=== PATIENT | female | born 1965 | race Caucasian/White ===

== ENCOUNTER → 2019-11-26 13:02 | Outpatient (CLI) | payer OTHER, SELFPAY ==
--- NOTE | ~2019-11-26 | MM_ITS ---
EXAMINATION: MM screening maureen BI w frankie HISTORY: Screening mammogram TECHNIQUE: Craniocaudal and mediolateral oblique 3-D tomosynthesis images were obtained and synthetic 2-D images were generated. CAD analysis was submitted and interpreted. COMPARISON: 11/01/2018, 08/21/2017, 06/24/2016 bilateral digital screening mammogram examinations BREAST PARENCHYMAL COMPOSITION: The breasts are almost entirely fatty. FINDINGS: There is no evidence of suspicious mass, calcification, or architectural distortion to sugg est malignancy in either breast. There has been no suspicious interval change. IMPRESSION: 1. No mammographic evidence of malignancy. 2. Recommend routine screening mammography in one year. BI-RADS Category 1: Negative Reviewed, dictated and finalized at location A. HAIRER
== END ==
PROVIDERS: Visit Provider Obstetrics & Gynecology
DX: Z12.31 Encounter for screening mammogram for malignant neoplasm of breast (principal)
CPT/HCPCS: 77063; 77067

== ENCOUNTER 2019-12-09 07:45 | Outpatient (RCR) | payer OTHER, SELFPAY ==
--- NOTE | 2019-11-25 10:49 | PTOPEVAL ---
Thank you for referring this patient to [facility]. Please review, sign, date and return this plan of care CARLOS. Pt seen for initial evaluation due to chronic back pain. She demonstrates posture impairments, muscle weakness and poor movement pattern that requires additional skilled therapy to address impairments and improved performance with daily activities. Cont PT 2x/wk x 5 wk. I agree with and certify that the following plan of care is medically necessary. Referring Physician Date Attending Provider: Yousuf Brand MD Referring Provider: *PT Outpatient Evaluation Start: 11/25/19 09:32 Freq: Status: Active Protocol: Document 11/25/19 09:33 LAURA (Rec: 11/25/19 10:49 LAURA [id number]) Therapy Assessment Status Assessment Status Assessment Status Evaluation Outpatient Past Medical History Past Medical History Past Medical History Status Patient Denies Significant Past Medical History Evaluation Information Problem Diagnosis low back pain Onset 3 years Cause unknown. 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 She Family reports increased pain with prolonged sitting. She report constant left acheness pain of left low back/buttock region. She will then have burning radiating pain into the left leg. She atttempts to change position to improve pain. She has tried a lumbar support without relief. She will have increased pain with sleeping depending on the position. She reports improve pain with standing and walking. She does yoga 1x/wk and walks 2-3x/wk for 2 miles. No pain changes with the fitness routine. Her left hip feels tighter with some of the moves . Diagnostic Tests X-Rays For This Problem Yes: hip normal Pain Assessment Timing of Pain Assessment Timing of Pain Assessment Assessment Pain Scale Pain Scale Used Numeric (1 - 10) Self Report Pain Assessment Left Posterior Buttock(s) Reported Pain Level 2 Pain Description Aching,Burning,Radiating, Tightness Pain Frequency Chronic,Continuous Current Pain Intensity 2 Greatest Pain Intensity
--- NOTE | 2019-12-11 11:54 | PCPTNOTE ---
Patient called & cancelled scheduled appointment this date due to Coronavirus. She is unsure if she will make her next appt.
--- NOTE | 2019-12-16 10:01 | PCPTNOTE ---
Patient called & cancelled scheduled appointment this date due to to the COVID-19 status. Cancelled re-eval also.
--- NOTE | 2019-12-30 09:18 | PCPTNOTE ---
Admitting Provider: Attending Provider: Yousuf Brand MD Patient:Liliana Cardona Date of :1965 Patient has not returned for any further treatments since 12/09/2019, therefore she will be discharged at this time. Patient?s initial visit was on 11/25/2019 09:30 and she had a total of 5 visits. The goals have not been met. Thank you for referring this patient to [facility]. Please review, sign, date and return this discharge summary CARLOS. I have been updated about the patient's current status and I agree with discharge from the above service at this time. Referring Physician Date
== END 2019-12-30 14:26 | disposition home or self-care (01) ==
LOC: ANHPT 07:45
PROVIDERS: Visit Provider Orthopaedic Surgery
DX: M47.816 Spondylosis without myelopathy or radiculopathy, lumbar region (principal)
CPT/HCPCS: 97110; 97140; 97161

== ENCOUNTER → 2021-02-26 11:28 | Outpatient (CLI) | payer OTHER, SELFPAY ==
--- NOTE | ~2021-02-26 | MM_ITS ---
EXAMINATION: MM screening maureen BI w frankie HISTORY: Screening TECHNIQUE: Craniocaudal and mediolateral oblique 3-D tomosynthesis images were obtained and synthetic 2-D images were generated. CAD analysis was submitted and interpreted. COMPARISON: Comparison to multiple prior studies sequentially, with oldest reviewed study dated 05/15. BREAST PARENCHYMAL COMPOSITION: There are scattered areas of fibroglandular density. FINDINGS: There is no evidence of suspicious mass, calcification, or architectural distortion to sugg est malignancy in either breast. There has been no suspicious interval change. IMPRESSION: 1. No mammographic evidence of malignancy. 2. Recommend routine screening mammography in one year. BI-RADS Category 1: Negative Reviewed, dictated and finalized at location A.
== END ==
PROVIDERS: PCP Physician Assistant; Visit Provider Physician Assistant
DX: Z12.31 Encounter for screening mammogram for malignant neoplasm of breast (principal)
CPT/HCPCS: 77063; 77067

== ENCOUNTER → 2022-05-26 11:41 | Outpatient (CLI) | payer OTHER, SELFPAY ==
--- NOTE | ~2022-05-26 | MM_ITS ---
EXAMINATION: MM screening maureen BI w frankie HISTORY: Screening mammogram, family history of breast cancer in her mother. TECHNIQUE: Craniocaudal and mediolateral oblique 3-D tomosynthesis images were obtained and synthetic 2-D images were generated. CAD analysis was submitted and interpreted. COMPARISON: 02/26/2021, 11/26/2019, 11/01/2018 BREAST PARENCHYMAL COMPOSITION: There are scattered areas of fibroglandular density. FINDINGS: There is no suspicious mass, calcification, or architectural distortion to suggest malignan cy in either breast. There has been no suspicious interval change. IMPRESSION: 1. No mammographic evidence of malignancy. 2. Recommend routine screening mammography in one year. BI-RADS Category 1: Negative Reviewed, dictated and finalized at location A.
== END ==
PROVIDERS: PCP Physician Assistant; Visit Provider Physician Assistant
DX: Z12.31 Encounter for screening mammogram for malignant neoplasm of breast (principal)
CPT/HCPCS: 77063; 77067

== ENCOUNTER → 2023-06-15 13:35 | Outpatient (CLI) | payer OTHER, SELFPAY ==
--- NOTE | ~2023-06-15 | MM_ITS ---
EXAMINATION: MM screening [facility] BI w frankie HISTORY: Screening TECHNIQUE: Craniocaudal and mediolateral oblique 3-D tomosynthesis images were obtained and synthetic 2-D images were generated. CAD analysis was submitted and interpreted. COMPARISON: Comparison to multiple prior studies sequentially, with oldest reviewed study dated 07/27. BREAST PARENCHYMAL COMPOSITION: There are scattered areas of fibroglandular density. FINDINGS: There is no evidence of suspicious mass, calcification, or architectural distortion to sugg est malignancy in either breast. There has been no suspicious interval change. IMPRESSION: 1. No mammographic evidence of malignancy. 2. Recommend routine screening mammography in one year. BI-RADS Category 1: Negative Reviewed, dictated and finalized at location A.
== END ==
PROVIDERS: PCP Physician Assistant; Visit Provider Physician Assistant
DX: Z12.31 Encounter for screening mammogram for malignant neoplasm of breast (principal)
CPT/HCPCS: 77063; 77067

== ENCOUNTER 2025-02-13 08:02 | Emergency (ER) | payer OTHER, SELFPAY ==
--- NOTE | 2025-02-13 08:05 | ED.SKABFB ---
HPI - Skin/Abscess/Foreign Bdy General Chief complaint: Skin/Abscess/Foreign Body Stated complaint: Rash Time Seen by Provider: 02/13/25 08:03 Source: patient Mode of arrival: ambulatory Limitations: no limitations History of Present Illness HPI narrative: Jing is a 59-year-old female patient presenting to the clinic today with complaints of a rash to her face and bilateral arms. She reports she reports she was out [place] and developed a rash 2 days ago. Thought the rash may have been caused by using 2 different types of sunscreen. Also reports caring around a barn cat and is unsure if the rash came from the cat. States the rash is itchy. Related Data Home Medications ?Medication ?Instructions ?Recorded ?Confirmed ?Last Taken ?Type aspirin 81 mg tablet,delayed 81 mg PO DAILY 11/06/19 10/18/23 Unknown History release (Adult Low Dose Aspirin) multivitamin 1 tablet PO DAILY 04/14/21 10/18/23 Unknown History Allergies Allergy/AdvReac Type Severity Reaction Status Date / Time prednisone Allergy Headache Verified 02/13/25 08:14 ibuprofen AdvReac stomach Verified 02/13/25 08:14 upset Review of Systems Review of Systems: Pertinent positives per HPI. Patient denies any fever, chills, headache, visual changes, dizziness, cough, runny nose, sore throat, shortness of breath, chest pain, palpitations, nausea, vomiting, diarrhea, constipation, abdominal pain, or any urinary issues. [facility], LAT[facility] Past Medical History Medical History De Quervain's syndrome (tenosynovitis) left first dorsal compartment Arthritis, lumbar spine Skin cancer Surgical History Surgical History History of breast biopsy 2010 History of elbow surgery Approx. - Dr. Brand left Lateral epicondylar debridement Family History Family History Mother Breast cancer Social History Social History Smoking status: Never smoker Alcohol intake: current Alcohol use details: Occasional Do You Feel Safe in your Home?: Yes Lack of Transportation: No Lack of Food: Never True Current Housing: I Have Housing Concerned About Future Housing: No Difficulty Paying Gas/Electric Bills: No Difficulty Paying for Meds: No Currently Unemployed: No Education: Bachelor's Degree Difficulty w/ Childcare or Family Care: No Living arrangements: with family Additional living arrangements comments: -[place] Occupation/Education: retired Gender identity (if verbalized by the patient): Female Comments At the time of my signature, I reviewed and agree with the nursing past medical, surgical, social, and family history. There is no relevant family history pertinent to the patient complaint. Exam Narrative: General: Well-developed, well nourished, in no apparent distress Head: Normocephalic, atraumatic. Cardio: Regular rate and rhythm, s1 and s2 normal, no murmur appreciated. Resp: Clear to auscultation bilaterally, no rhonchi, rales, wheezing or rubs. Integumentary: [place], warm, and dry, intact without lesion, red, raised, blistered itchy rash to face and bilateral arms Course Course Emergency Course: Portions of this record may have been created with voice recognition software. Level of Care: Express Care Visit Vital Signs Vital signs: Vital Signs Temperature 36.2 C L 02/13/25 08:12 Pulse Rate 55 L 02/13/25 08:12 Respiratory Rate 18 02/13/25 08:12 Blood Pressure 119/65 02/13/25 08:12 Pulse Oximetry 97 02/13/25 08:12 Oxygen Delivery Room Air 02/13/25 08:12 Temperature 36.2 C L 02/13/25 08:12 Pulse Rate 55 L 02/13/25 08:12 Respiratory Rate 18 02/13/25 08:12 Blood Pressure 119/65 02/13/25 08:12 Pulse Oximetry 97 02/13/25 08:12 Oxygen Delivery Room Air 02/13/25 08:12 Vital signs reviewed MDM - Skin/Abscess/Foreign Bdy MDM Narrative Medical decision making narrative: At the time of visit patient is resting comfortably on the exam table. Patient appears to be nontoxic. Medications: Dexamethasone 10 mg IM given in the clinic today. Plan: I suspect patient has poison kady dermatitis. Prescription for prednisone and triamcinolone cream was sent to the pharmacy. Patient states that she has not had prednisone in about 12 years and they gave her a headache which she has taken it before but is willing to try it again. Supportive measures were discussed with the patient and they voiced understanding discharge instructions and agrees to treatment plan. Return precautions reviewed Differential Diagnosis Differential diagnosis: Likely abscess of skin or subcutaneous tissue, viral exanthem, dermatophytosis, urticaria, herpes zoster, allergic reaction to drug, cellulitis, eczema, insect bites, impetigo and contact dermatitis Discharge Plan Discharge Clinical Impression: Contact dermatitis due to poison kady Patient Disposition: Home Condition: Stable Instructions: Antibiotic Form, Poison Kady (ED) Additional Instructions: If oral prednisone gives you a headache you may stop taking the prednisone and continue the steroid cream May take Tylenol/Motrin as needed for pain Apply triamcinolone cream as directed-prednisone and triamcinolone cream Take prednisone as directed Avoid hot showers May apply calamine lotion to rash Avoid scratching and this causes rash to spread May take benadryl 25-50mg every 6 hours as needed for itching. Follow up with your PCP in 3-5 days if symptoms persist or sooner if they worsen Go to the Emergency Room if symptoms worsen- fever, rash spreading with treatment, shortness of breath, tongue swelling, drooling, or chest pain Patient Language: Dominican Prescriptions: New prednisone 10 mg tablet 10 mg PO DAILY Qty: 30 0RF Rx Instructions: 60mg po daily on day 1, 40mg po daily on days 2-4, 30mg po daily on days 5-6, 20mg po daily on days 7-8, 10mg po daily on days 9-10 triamcinolone acetonide 0.1 % cream 1 applic topical BID 7 Days Qty: 30 0RF No Action aspirin [Adult Low Dose Aspirin] 81 mg tablet,delayed release (DR/EC) 81 mg PO DAILY multivitamin Tablet 1 tablet PO DAILY Follow-up/Referrals: Sarah,NALLELY Fonseca [Primary Care Provider] - Time of Disposition: 08:23 Quality NIHSS Nursing Documentation ED NIHSS nursing documentation: reviewed/agree
--- OUTSIDE RECORDS SUMMARY | 2025-02-13 08:06 | XMS_ITS | Clinical Summary ---
Author Organization [facility] Address [address] [place] [address] Phone Care Team Providers Care Metal Welder Name Role Phone Tonny Pineda MD Primary Care Provider Allergies No known active allergies Medications No known medications Active Problems Problem Noted Date Diagnosed Date Benign neoplasm of breast 11/24/2009 Abnormal mammogram 10/30/2009 Loss of hearing Family History Medical History Relation Name Comments Cancer Maternal Grandmother Heart Disease Paternal Grandmother Relation Name Status Comments Maternal Grandmother Paternal Grandmother Social History Tobacco Use Types Packs/Day Years Used Date Smoking Tobacco: Never Alcohol Use Standard Drinks/Week Comments Yes 0 (1 standard drink = 0.6 oz pur e alcohol) moderate Comments No Sex and Gender Information Value Date Recorded Sex Assigned at Not on file Legal Sex 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 Gender Identity Not on file Sexual Orientation Not on file Occupation Industry Job Start Date Job End Date Not on file Not on file Not on file Not on file Last Filed Vital Signs Vital Sign Reading Time Taken Comments Blood Pressure 98/62 10/30/2009 10:49 AM CELERY PACKER Pulse - - Temperature - - Respiratory Rate - - Oxygen Saturation - - Inhaled Oxygen Concentration - - Weight 74.8 kg (165 lb) 10/30/2009 10:49 AM CELERY PACKER Height 170.2 cm (5' 7 ) 10/30/2009 10:49 AM CELERY PACKER Body Mass Index 25.84 10/30/2009 10:49 AM CELERY PACKER Plan of Treatment Health Maintenance Due Date Last Done Comments DTAP/TDAP/TD VACCINES (1 - Tdap) 1982 HPV/Cotest (21-29) 1984 CERVICAL CANCER SCREENING 1993 HPV/Cotest (30-65) 1993 PAP SMEAR 1993 COLORECTAL SCREENING 2008 Colorectal Cancer Screening 2008 FIT-DNA Q 3 years 2008 FIT/FOBT Q 1 year 2008 Flex Sig/CT Colonography Q 5 years 2008 BREAST CANCER SCREENING 10/30/2010 10/30/2009 ZOSTER VACCINE (1 of 2) 2013 INFLUENZA VACCINE (#1) 2024 RSV VACCINE (60+ or ) (1 - 1-dose 75+ series) 2038 Procedures Procedure Name Priority Date/Time Associated Diagnosis Comments MAMMO SCREENING BILAT Routine 10/30/2009 from Last 3 Months or Most Recently Relevant to Health Maintenance Results * MAMMO SCREENING BILAT (10/30/2009) Anatomical Region Laterality Modality Breast Bilateral Other us Elma Ingram MD MAMMO ORDERABLES Final Result from Last 3 Months or Most Recently Relevant to Health Maintenance Care Teams Metal Welder Relationship Specialty Start Date End Date Tonny Pineda MD [address] [place] [address] PCP - General 11/13/08
[2025-02-13 08:12] VITALS: BP 119/65; PULSE 55; RESP 18; TEMP 36.2; O2SAT 97
[2025-02-13] MEDS: dexAMETHasone SOD PHOS INJ 10 MG/ML 1 ML VIAL IM (08:30)
== END 2025-02-13 08:35 | disposition home or self-care (01) ==
PROVIDERS: Emergency Provider Nurse Practitioner Family; PCP Physician Assistant
DX: L23.7 Allergic contact dermatitis due to plants, except food (principal); Z79.82 Long term (current) use of aspirin; M47.816 Spondylosis without myelopathy or radiculopathy, lumbar region; Z85.828 Personal history of other malignant neoplasm of skin
CPT/HCPCS: 96372; 99213; G0463; J1100